=== PATIENT | female | born 1990 | race Hispanic/Latino ===

== ENCOUNTER 2018-07-25 22:46 | Emergency (ER) | payer OTHER ==
[2018-07-25 23:20] LABS: APPEARANCE,URINE Cloudy (CLEAR); BILIRUBIN,URINE Negative (NEGATIVE); COLOR,URINE Yellow (YELLOW); GLUCOSE, URINE (UA) Negative (NEGATIVE); KETONES,URINE Negative (NEGATIVE); LEUKOCYTE ESTERASE ,URINE Negative (NEGATIVE); NITRATE,URINE Negative (NEGATIVE); OCCULT BLOOD,URINE Nonhemolyzed Trace (NEGATIVE); PH,URINE 5.5 (5.0-8.0); PROTEIN,URINE Negative (NEGATIVE)
[2018-07-26 00:04] LABS: BACTERIA,URINE Few /HPF (None Seen); WBC,URINE 0-1 /HPF (0-1)
== END 2018-07-26 00:23 | disposition home or self-care (01) ==
LOC: EDH 22:46
DX: N93.8 Other specified abnormal uterine and vaginal bleeding (principal); N92.6 Irregular menstruation, unspecified; Z98.890 Other specified postprocedural states
CPT/HCPCS: 81001; 81025